=== PATIENT | male | born 1965 | race Caucasian/White ===

== ENCOUNTER 2016-02-24 15:20 | Inpatient (IN) | payer MEDICARE ==
[~2016-02-24] VITALS: Ht 188 cm; Wt 107.6 kg
[~2016-02-24 15:20] MED LIST: ACETAMINOPHEN 1,000 MG/100 ML IV ONE; BUPIVACA/EPI 0.25% PF 30ML NERVEBLOCK ONE; LIDOCAINE 2% SYR 5 ML IV ONE; PROPOFOL 50ML PER ML IV ONE; SUCCINYLCHOLINE 20 MG/ML VL IV ONE
[2016-02-24] MEDS ORDERED: ONDANSETRON 4 MG VIAL ONE ×2 (19:23→22:31)
[2016-02-24] MEDS ORDERED: DILAUDID 1 MG/ML AMP ONE ×2 (19:23→22:31)
[2016-02-24] MEDS ORDERED: VANCOMYCIN 2,000 MG in SODIUM CHLORIDE 0.9% 500 ML IV ONE (22:20)
[2016-02-24] MEDS ORDERED: BISACODYL EC 5 MG TAB PO PRN (22:55)
[2016-02-24] MEDS ORDERED: GLUCAGON 1 MG VIAL IM PRN (22:55)
[2016-02-24] MEDS ORDERED: ALU/MAG/SIM 30 ML UDC PO PRN (22:55)
[2016-02-24] MEDS ORDERED: ACETAMINOPHEN 325 MG TAB PO PRN (22:55)
[2016-02-24] MEDS ORDERED: DEXTROSE 50% SYRINGE 50 ML IV PRN (22:55)
[2016-02-24] MEDS ORDERED: BISACODYL 10 MG SUPP RECTAL PRN (22:55)
[2016-02-24] MEDS ORDERED: PHARMACY TO DOSE ZOSYN IV SCH (23:00)
[2016-02-24] MEDS ORDERED: PHARMACY TO DOSE VANCOMYCIN IV SCH (23:00)
[2016-02-25] VITALS (7 sets, daily range): BP systolic 110–122; RESP 16–20; TEMP 95.8–97.7; Ht 188 cm; Wt 107.6 kg
[2016-02-25] MEDS ORDERED: NITROGLYCERIN SL 0.4 MG TAB SL PRN (02:50)
[2016-02-25] MEDS ORDERED: DILAUDID 1 MG/ML AMP IV PRN ×2 (02:50→04:20)
[2016-02-25] MEDS ORDERED: NITROGLYCERIN SL 0.4 MG TAB SL ONE (03:00)
[2016-02-25] MEDS ORDERED: ASPIRIN 81 MG CHEW TAB PO ONE (03:15)
[2016-02-25] MEDS: DILAUDID 1 MG/ML AMP IV PRN ×7 (04:44→23:27)
[2016-02-25] MEDS: PIPERACIL/TAZO 2.25GM/50ML 50 ML IV SCH ×3 (04:45→23:26)
[2016-02-25] MEDS: SODIUM CHLORIDE 0.9% FLUSH BAG 500 ML IV SCH (04:52)
[2016-02-25] MEDS: ONDANSETRON 4 MG VIAL IV PUSH PRN ×3 (05:46→14:05)
[2016-02-25] MEDS: FAMOTIDINE 20 MG INJ IV SCH ×2 (08:01→20:21)
[2016-02-25] MEDS: SALINE FLUSH 10 ML FLUSH SCH ×2 (08:01→19:46)
[2016-02-25] MEDS ORDERED: ENOXAPARIN 30 MG/0.3 ML SYR SUBQ SCH (09:00)
[2016-02-25] MEDS ORDERED: CYCLOBENZAPRINE 10 MG TAB PO PRN (11:05)
[2016-02-25] MEDS: Furosemide 40 MG TAB PO SCH ×2 (11:05→16:42)
[2016-02-25] MEDS: LEVEMIR INSULIN SUBQ SCH ×2 (11:09→17:00)
[2016-02-25] MEDS ORDERED: PANTOPRAZOLE 40 MG TAB PO SCH (11:12)
[2016-02-25] MEDS: METOCLOPRAMIDE 5 MG TAB PO SCH ×2 (12:34→16:53)
[2016-02-25] MEDS: LANTHANUM 500 MG PO SCH ×3 (12:35→19:01)
[2016-02-25] MEDS: Carvedilol 6.25 MG TAB PO SCH ×2 (12:36→20:21)
[2016-02-25] MEDS: RANOLAZINE ER 500 MG TAB PO SCH ×2 (12:36→20:20)
[2016-02-25] MEDS: TAMSULOSIN 0.4 MG CAP PO SCH ×2 (12:36→20:20)
[2016-02-25] MEDS: DICYCLOMINE 20 MG TAB PO SCH ×3 (12:36→23:26)
[2016-02-25] MEDS: SERTRALINE 50 MG TAB PO SCH (12:37)
[2016-02-25] MEDS: amLODIPine 10 MG TAB PO SCH (12:37)
[2016-02-25] MEDS: THIAMINE 100 MG TAB PO SCH ×2 (12:41→20:21)
[2016-02-25] MEDS ORDERED: SODIUM CHLORIDE 0.9% 1,000 ML IV PRN (13:20)
[2016-02-25] MEDS ORDERED: ALBUMIN HUMAN 25GM (25%) 100 ML IV PRN (13:20)
[2016-02-25] MEDS ORDERED: SODIUM CHLORIDE 0.9% 1,000 ML IV SCH (13:20)
[2016-02-25] MEDS: DUONEB INH SCH ×4 (15:53→23:39)
[2016-02-25] MEDS: ONDANSETRON 4 MG VIAL IV PRN (19:46)
[2016-02-25] MEDS: ROSUVASTATIN 5 MG TAB PO SCH (20:20)
[2016-02-26 00:27] VITALS: TEMP 96.3
[2016-02-26 00:44] VITALS: TEMP 97.3
[2016-02-26] MEDS: ONDANSETRON 4 MG VIAL IV PRN ×3 (03:05→15:34)
[2016-02-26] MEDS: DILAUDID 1 MG/ML AMP IV PRN ×9 (03:06→22:53)
[2016-02-26 03:10] VITALS: BP_SYST 119; RESP 16; TEMP 97.3
[2016-02-26] MEDS: DICYCLOMINE 20 MG TAB PO SCH ×5 (05:17→22:52)
[2016-02-26] MEDS ORDERED: MISSING DOSE XX ONE ×4 (05:20→22:10)
[2016-02-26] MEDS: SODIUM CHLORIDE 0.9% FLUSH BAG 500 ML IV SCH (06:51)
[2016-02-26 07:23] VITALS: BP_SYST 124; RESP 18
[2016-02-26] MEDS: METOCLOPRAMIDE 5 MG TAB PO SCH ×2 (07:40→18:38)
[2016-02-26] MEDS: DUONEB INH SCH ×4 (07:47→22:58)
[2016-02-26] MEDS: LEVEMIR INSULIN SUBQ SCH ×2 (08:00→17:00)
[2016-02-26] MEDS: Carvedilol 6.25 MG TAB PO SCH ×2 (09:00→21:09)
[2016-02-26] MEDS: amLODIPine 10 MG TAB PO SCH (09:00)
[2016-02-26] MEDS: SALINE FLUSH 10 ML FLUSH SCH ×2 (09:40→20:13)
[2016-02-26] MEDS: SERTRALINE 50 MG TAB PO SCH (09:45)
[2016-02-26] MEDS: LANTHANUM 500 MG PO SCH ×3 (09:45→18:02)
[2016-02-26] MEDS: FAMOTIDINE 20 MG INJ IV SCH ×2 (09:45→21:09)
[2016-02-26] MEDS: RANOLAZINE ER 500 MG TAB PO SCH ×2 (09:46→21:09)
[2016-02-26] MEDS: THIAMINE 100 MG TAB PO SCH ×2 (09:46→21:10)
[2016-02-26] MEDS: TAMSULOSIN 0.4 MG CAP PO SCH ×2 (09:46→21:09)
[2016-02-26] MEDS: Furosemide 40 MG TAB PO SCH ×2 (09:46→18:01)
[2016-02-26 11:26] VITALS: BP_SYST 122; RESP 16; TEMP 97.6
[2016-02-26] MEDS: PIPERACIL/TAZO 2.25GM/50ML 50 ML IV SCH (12:11)
[2016-02-26] MEDS: SACCHA BOULARDII 250MG CAP PO SCH ×3 (12:45→21:09)
[2016-02-26] MEDS ORDERED: EPOETIN 10,000 UNIT VIAL IV SCH ×2 (16:55→17:05)
[2016-02-26] MEDS ORDERED: EPOETIN 2000 UNIT IV SCH (17:00)
[2016-02-26] MEDS ORDERED: EPOETIN IV SCH (17:00)
[2016-02-26 19:17] VITALS: BP_SYST 138; RESP 18; TEMP 97.7
[2016-02-26] MEDS ORDERED: VANCOMYCIN 1,000 MG in SODIUM CHLORIDE 0.9% 250 ML IV ONE (21:00)
[2016-02-26] MEDS: ROSUVASTATIN 5 MG TAB PO SCH (21:09)
[2016-02-26] MEDS: PANTOPRAZOLE 40 MG TAB PO SCH (21:10)
[2016-02-26] MEDS: ONDANSETRON 4 MG VIAL IV PUSH PRN (22:52)
[2016-02-27] VITALS (13 sets, daily range): BP systolic 85–179; RESP 16–18; TEMP 95–98.1
[2016-02-27] MEDS: PIPERACIL/TAZO 2.25GM/50ML 50 ML IV SCH ×3 (00:03→23:11)
[2016-02-27] MEDS: DILAUDID 1 MG/ML AMP IV PRN ×8 (01:07→23:51)
[2016-02-27] MEDS: DICYCLOMINE 20 MG TAB PO SCH ×4 (04:07→23:11)
[2016-02-27] MEDS: ONDANSETRON 4 MG VIAL IV PUSH PRN ×2 (04:23→09:10)
[2016-02-27] MEDS: SODIUM CHLORIDE 0.9% FLUSH BAG 500 ML IV SCH (05:43)
[2016-02-27] MEDS: METOCLOPRAMIDE 5 MG TAB PO SCH ×2 (06:15→18:01)
[2016-02-27] MEDS: DUONEB INH SCH ×4 (07:06→22:38)
[2016-02-27] MEDS ORDERED: MISSING DOSE XX ONE ×5 (08:40→21:25)
[2016-02-27] MEDS: amLODIPine 10 MG TAB PO SCH (08:43)
[2016-02-27] MEDS: Carvedilol 6.25 MG TAB PO SCH ×2 (08:43→21:44)
[2016-02-27] MEDS: LEVEMIR INSULIN SUBQ SCH ×2 (09:03→16:50)
[2016-02-27] MEDS: FAMOTIDINE 20 MG INJ IV SCH ×2 (09:08→21:29)
[2016-02-27] MEDS: Furosemide 40 MG TAB PO SCH ×2 (09:09→16:50)
[2016-02-27] MEDS: TAMSULOSIN 0.4 MG CAP PO SCH ×2 (09:09→21:14)
[2016-02-27] MEDS: RANOLAZINE ER 500 MG TAB PO SCH ×2 (09:09→21:13)
[2016-02-27] MEDS: SACCHA BOULARDII 250MG CAP PO SCH ×3 (09:09→21:14)
[2016-02-27] MEDS: SERTRALINE 50 MG TAB PO SCH (09:09)
[2016-02-27] MEDS: LANTHANUM 500 MG PO SCH ×3 (09:10→18:01)
[2016-02-27] MEDS ORDERED: GLYCOPYRROLATE 0.2 MG/ML VIAL IV ONE ×2 (09:10)
[2016-02-27] MEDS ORDERED: MIDAZOLAM 2 MG/2 ML INJ IV ONE ×2 (09:10)
[2016-02-27] MEDS ORDERED: LIDOCAINE 1% BUFFERED 1 ML SYR INTRADERM PRN ×2 (09:10)
[2016-02-27] MEDS ORDERED: LACT RINGERS 1,000 ML IV SCH ×2 (09:10)
[2016-02-27] MEDS ORDERED: NEB-XOPENEX 0.63 MG/3 ML INH ONE (09:10)
[2016-02-27] MEDS: THIAMINE 100 MG TAB PO SCH ×2 (09:10→21:13)
[2016-02-27] MEDS: SALINE FLUSH 10 ML FLUSH SCH ×2 (09:11→21:29)
[2016-02-27] MEDS: ONDANSETRON 4 MG VIAL IV PRN (18:10)
[2016-02-27] MEDS ORDERED: VANCOMYCIN 750 MG in SODIUM CHLORIDE 0.9% 250 ML IV ONE (21:00)
[2016-02-27] MEDS: ROSUVASTATIN 5 MG TAB PO SCH (21:13)
[2016-02-27] MEDS: Senna/DSS 50/8.6 MG TAB PO SCH (21:13)
[2016-02-27] MEDS: PANTOPRAZOLE 40 MG TAB PO SCH (21:28)
[2016-02-28] VITALS (22 sets, daily range): BP systolic 96–188; RESP 14–16; TEMP 97.2–98.4
[2016-02-28] MEDS: DILAUDID 1 MG/ML AMP IV PRN ×9 (04:06→22:26)
[2016-02-28] MEDS: ONDANSETRON 4 MG VIAL IV PRN ×3 (04:06→17:48)
[2016-02-28] MEDS: DICYCLOMINE 20 MG TAB PO SCH ×4 (04:07→22:37)
[2016-02-28] MEDS: SODIUM CHLORIDE 0.9% FLUSH BAG 500 ML IV SCH (05:34)
[2016-02-28] MEDS: METOCLOPRAMIDE 5 MG TAB PO SCH ×2 (06:03→17:12)
[2016-02-28] MEDS: DUONEB INH SCH ×4 (07:00→23:00)
[2016-02-28] MEDS: SALINE FLUSH 10 ML FLUSH SCH ×2 (08:00→19:53)
[2016-02-28] MEDS: LEVEMIR INSULIN SUBQ SCH ×2 (08:00→17:00)
[2016-02-28] MEDS: BISACODYL EC 5 MG TAB PO SCH (09:00)
[2016-02-28] MEDS: SACCHA BOULARDII 250MG CAP PO SCH ×3 (09:00→20:24)
[2016-02-28] MEDS: RANOLAZINE ER 500 MG TAB PO SCH ×2 (09:00→20:24)
[2016-02-28] MEDS: LANTHANUM 500 MG PO SCH ×3 (09:00→17:12)
[2016-02-28] MEDS: TAMSULOSIN 0.4 MG CAP PO SCH ×3 (09:00→20:24)
[2016-02-28] MEDS: Senna/DSS 50/8.6 MG TAB PO SCH ×2 (09:00→20:24)
[2016-02-28] MEDS: Furosemide 40 MG TAB PO SCH ×2 (09:00→17:12)
[2016-02-28] MEDS: THIAMINE 100 MG TAB PO SCH ×2 (09:00→20:24)
[2016-02-28] MEDS ORDERED: VENOFER 100 MG/5 ML VL IV SCH (09:50)
[2016-02-28] MEDS: Carvedilol 6.25 MG TAB PO SCH ×2 (09:54→20:24)
[2016-02-28] MEDS: FAMOTIDINE 20 MG INJ IV SCH ×2 (10:19→20:25)
[2016-02-28] MEDS: PIPERACIL/TAZO 2.25GM/50ML 50 ML IV SCH (12:07)
[2016-02-28] MEDS ORDERED: MIDAZOLAM 2 MG/2 ML INJ ONE (13:37)
[2016-02-28] MEDS ORDERED: ONDANSETRON 4 MG VIAL IV PRN (14:35)
[2016-02-28] MEDS ORDERED: MEPERIDINE 25 MG/ML IV PRN (14:35)
[2016-02-28] MEDS ORDERED: OXYCODONE 5 MG TAB PO PRN (14:35)
[2016-02-28] MEDS ORDERED: MORPHINE 2 MG/ML SYR IV PRN (14:35)
[2016-02-28] MEDS ORDERED: MORPHINE 4 MG/ML SYR IV PRN (14:35)
[2016-02-28] MEDS: SERTRALINE 50 MG TAB PO SCH (17:11)
[2016-02-28] MEDS: amLODIPine 10 MG TAB PO SCH (17:14)
[2016-02-28] MEDS: ROSUVASTATIN 5 MG TAB PO SCH (20:24)
[2016-02-28] MEDS: PANTOPRAZOLE 40 MG TAB PO SCH (20:24)
[2016-02-28] MEDS: SALINE FLUSH 10 ML FLUSH PRN (20:25)
[2016-02-28] MEDS: oxyCODONE/APAP 10/325 TABLET PO PRN (20:59)
[2016-02-28] MEDS ORDERED: TAMSULOSIN 0.4 MG CAP PO SCH (21:00)
[2016-02-28] MEDS: LANTHANUM 500 MG PO PRN (22:37)
[2016-02-29] VITALS (7 sets, daily range): BP systolic 132–180; RESP 16–20; TEMP 97.2–98.9
[2016-02-29] MEDS: PIPERACIL/TAZO 2.25GM/50ML 50 ML IV SCH ×2 (01:23→14:51)
[2016-02-29] MEDS: DILAUDID 1 MG/ML AMP IV PRN ×7 (01:23→22:40)
[2016-02-29] MEDS: SALINE FLUSH 10 ML FLUSH PRN ×2 (01:24→04:01)
[2016-02-29] MEDS: ONDANSETRON 4 MG VIAL IV PRN ×4 (01:50→22:32)
[2016-02-29] MEDS: DICYCLOMINE 20 MG TAB PO SCH ×4 (03:59→22:31)
[2016-02-29] MEDS ORDERED: FENTANYL 100 MCG/2 ML AMP IV ONE (06:05)
[2016-02-29] MEDS ORDERED: ONDANSETRON 4 MG VIAL IV PUSH ONE (06:10)
[2016-02-29] MEDS: METOCLOPRAMIDE 5 MG TAB PO SCH ×2 (06:19→16:00)
[2016-02-29] MEDS: SODIUM CHLORIDE 0.9% FLUSH BAG 500 ML IV SCH (06:20)
[2016-02-29] MEDS: DUONEB INH SCH ×3 (06:39→23:14)
[2016-02-29] MEDS: LEVEMIR INSULIN SUBQ SCH ×2 (08:00→17:00)
[2016-02-29] MEDS: FAMOTIDINE 20 MG INJ IV SCH ×2 (08:00→20:08)
[2016-02-29] MEDS: SALINE FLUSH 10 ML FLUSH SCH ×2 (08:54→20:07)
[2016-02-29] MEDS: THIAMINE 100 MG TAB PO SCH ×2 (09:00→20:08)
[2016-02-29] MEDS: Furosemide 40 MG TAB PO SCH ×2 (09:00→17:00)
[2016-02-29] MEDS: TAMSULOSIN 0.4 MG CAP PO SCH ×3 (09:00→20:22)
[2016-02-29] MEDS: SACCHA BOULARDII 250MG CAP PO SCH ×3 (09:00→20:08)
[2016-02-29] MEDS: LANTHANUM 500 MG PO SCH ×3 (09:00→18:00)
[2016-02-29] MEDS: RANOLAZINE ER 500 MG TAB PO SCH ×2 (09:00→20:08)
[2016-02-29] MEDS: Senna/DSS 50/8.6 MG TAB PO SCH ×2 (09:00→20:08)
[2016-02-29] MEDS: Carvedilol 6.25 MG TAB PO SCH ×2 (09:00→20:08)
[2016-02-29] MEDS: BISACODYL EC 5 MG TAB PO SCH (14:51)
[2016-02-29] MEDS: SERTRALINE 50 MG TAB PO SCH (14:51)
[2016-02-29] MEDS: amLODIPine 10 MG TAB PO SCH (14:51)
[2016-02-29] MEDS: LANTHANUM 500 MG PO PRN (14:58)
[2016-02-29] MEDS: PANTOPRAZOLE 40 MG TAB PO SCH (20:08)
[2016-02-29] MEDS: ROSUVASTATIN 5 MG TAB PO SCH (20:08)
[2016-02-29] MEDS: MAG HYDROX 30 ML UDC PO PRN (20:18)
[2016-02-29] MEDS ORDERED: VANCOMYCIN 500 MG in SODIUM CHLORIDE 0.9% 100 ML IV ONE (21:40)
[2016-03-01] VITALS (7 sets, daily range): BP systolic 106–171; RESP 16–20; TEMP 97.8–99.9
[2016-03-01] MEDS: PIPERACIL/TAZO 2.25GM/50ML 50 ML IV SCH ×3 (00:56→23:23)
[2016-03-01] MEDS: DILAUDID 1 MG/ML AMP IV PRN ×5 (01:02→20:20)
[2016-03-01] MEDS: ONDANSETRON 4 MG VIAL IV PRN (04:52)
[2016-03-01] MEDS: DICYCLOMINE 20 MG TAB PO SCH ×4 (04:53→23:22)
[2016-03-01] MEDS: oxyCODONE/APAP 10/325 TABLET PO PRN (05:38)
[2016-03-01] MEDS: SODIUM CHLORIDE 0.9% FLUSH BAG 500 ML IV SCH (05:38)
[2016-03-01] MEDS: METOCLOPRAMIDE 5 MG TAB PO SCH ×2 (06:42→17:00)
[2016-03-01] MEDS: DUONEB INH SCH ×4 (07:24→23:14)
[2016-03-01] MEDS: LEVEMIR INSULIN SUBQ SCH ×2 (08:00→17:00)
[2016-03-01] MEDS ORDERED: MISSING DOSE XX ONE ×4 (08:45→13:45)
[2016-03-01] MEDS: Carvedilol 6.25 MG TAB PO SCH ×2 (09:16→20:11)
[2016-03-01] MEDS: Senna/DSS 50/8.6 MG TAB PO SCH ×2 (09:16→20:11)
[2016-03-01] MEDS: SACCHA BOULARDII 250MG CAP PO SCH ×3 (09:17→20:19)
[2016-03-01] MEDS: Furosemide 40 MG TAB PO SCH ×2 (09:17→17:01)
[2016-03-01] MEDS: RANOLAZINE ER 500 MG TAB PO SCH ×2 (09:18→20:11)
[2016-03-01] MEDS: LANTHANUM 500 MG PO SCH ×3 (09:18→18:02)
[2016-03-01] MEDS: THIAMINE 100 MG TAB PO SCH ×2 (09:19→20:11)
[2016-03-01] MEDS: BISACODYL EC 5 MG TAB PO SCH (09:20)
[2016-03-01] MEDS: SERTRALINE 50 MG TAB PO SCH (09:20)
[2016-03-01] MEDS: amLODIPine 10 MG TAB PO SCH (09:20)
[2016-03-01] MEDS: SALINE FLUSH 10 ML FLUSH SCH ×2 (09:22→20:12)
[2016-03-01] MEDS: FAMOTIDINE 20 MG INJ IV SCH ×2 (09:22→20:10)
[2016-03-01] MEDS: PROMETHAZINE 25 MG/ML VIAL IV PRN ×2 (11:10→20:20)
[2016-03-01] MEDS: KETOROLAC 30 MG/ML VIAL IV SCH ×3 (11:54→23:23)
[2016-03-01] MEDS ORDERED: SODIUM CHLORIDE 0.9% 1,000 ML IV SCH (13:10)
[2016-03-01] MEDS ORDERED: hePARIN 1,000 UNITS/ML (PORCINE) 10 ML IV PRN (13:10)
[2016-03-01] MEDS: ROSUVASTATIN 5 MG TAB PO SCH (20:11)
[2016-03-01] MEDS: PANTOPRAZOLE 40 MG TAB PO SCH (20:11)
[2016-03-01] MEDS: TAMSULOSIN 0.4 MG CAP PO SCH (20:11)
[2016-03-02] VITALS (8 sets, daily range): BP systolic 105–166; RESP 16–18; TEMP 97.3–98.1
[2016-03-02] MEDS: DILAUDID 1 MG/ML AMP IV PRN ×5 (00:47→23:43)
[2016-03-02] MEDS: DICYCLOMINE 20 MG TAB PO SCH ×4 (05:43→23:00)
[2016-03-02] MEDS: METOCLOPRAMIDE 5 MG TAB PO SCH ×2 (05:43→17:30)
[2016-03-02] MEDS: KETOROLAC 30 MG/ML VIAL IV SCH ×4 (05:43→23:42)
[2016-03-02] MEDS: SODIUM CHLORIDE 0.9% FLUSH BAG 500 ML IV SCH (05:44)
[2016-03-02] MEDS: SALINE FLUSH 10 ML FLUSH SCH ×2 (08:00→20:46)
[2016-03-02] MEDS: FAMOTIDINE 20 MG INJ IV SCH ×2 (08:00→20:46)
[2016-03-02] MEDS: LEVEMIR INSULIN SUBQ SCH ×2 (08:00→16:38)
[2016-03-02] MEDS: DUONEB INH SCH ×4 (08:08→23:24)
[2016-03-02] MEDS: RANOLAZINE ER 500 MG TAB PO SCH ×2 (09:00→20:47)
[2016-03-02] MEDS: Carvedilol 6.25 MG TAB PO SCH ×2 (09:00→20:51)
[2016-03-02] MEDS: LANTHANUM 500 MG PO SCH ×3 (09:00→17:38)
[2016-03-02] MEDS: Furosemide 40 MG TAB PO SCH ×2 (09:00→17:30)
[2016-03-02] MEDS: THIAMINE 100 MG TAB PO SCH ×2 (09:00→20:47)
[2016-03-02] MEDS: Senna/DSS 50/8.6 MG TAB PO SCH ×2 (09:00→20:47)
[2016-03-02] MEDS: SACCHA BOULARDII 250MG CAP PO SCH ×3 (09:00→20:47)
[2016-03-02] MEDS: amLODIPine 10 MG TAB PO SCH (14:04)
[2016-03-02] MEDS ORDERED: MISSING DOSE XX ONE ×2 (14:05→21:05)
[2016-03-02] MEDS: BISACODYL EC 5 MG TAB PO SCH (14:05)
[2016-03-02] MEDS: SERTRALINE 50 MG TAB PO SCH (14:10)
[2016-03-02] MEDS: PIPERACIL/TAZO 2.25GM/50ML 50 ML IV SCH ×2 (14:24→23:45)
[2016-03-02] MEDS: ONDANSETRON 4 MG VIAL IV PRN ×2 (14:49→23:42)
[2016-03-02] MEDS: PROMETHAZINE 25 MG/ML VIAL IV PRN ×2 (15:01→20:46)
[2016-03-02] MEDS ORDERED: VANCOMYCIN 500 MG in SODIUM CHLORIDE 0.9% 100 ML IV ONE (18:00)
[2016-03-02] MEDS: ROSUVASTATIN 5 MG TAB PO SCH (20:47)
[2016-03-02] MEDS: PANTOPRAZOLE 40 MG TAB PO SCH (20:47)
[2016-03-02] MEDS: TAMSULOSIN 0.4 MG CAP PO SCH (20:47)
[2016-03-02] MEDS: MAG HYDROX 30 ML UDC PO PRN (21:08)
[2016-03-03] MEDS: DILAUDID 1 MG/ML AMP IV PRN ×7 (02:49→23:25)
[2016-03-03] MEDS: PROMETHAZINE 25 MG/ML VIAL IV PRN ×3 (02:49→19:47)
[2016-03-03 03:47] VITALS: BP_SYST 134; RESP 16; TEMP 97.6
[2016-03-03] MEDS: KETOROLAC 30 MG/ML VIAL IV SCH ×4 (04:16→23:28)
[2016-03-03] MEDS: DICYCLOMINE 20 MG TAB PO SCH ×4 (05:00→23:28)
[2016-03-03] MEDS: METOCLOPRAMIDE 5 MG TAB PO SCH (06:13)
[2016-03-03] MEDS: ONDANSETRON 4 MG VIAL IV PRN ×2 (06:14→13:49)
[2016-03-03] MEDS: SODIUM CHLORIDE 0.9% FLUSH BAG 500 ML IV SCH (06:15)
[2016-03-03] MEDS: DUONEB INH SCH ×4 (06:24→22:17)
[2016-03-03 07:21] VITALS: BP_SYST 122; RESP 18; TEMP 97.3
[2016-03-03] MEDS: SALINE FLUSH 10 ML FLUSH SCH ×2 (07:49→19:47)
[2016-03-03] MEDS: FAMOTIDINE 20 MG INJ IV SCH ×2 (07:49→19:47)
[2016-03-03] MEDS: RANOLAZINE ER 500 MG TAB PO SCH ×2 (09:01→21:11)
[2016-03-03] MEDS: LEVEMIR INSULIN SUBQ SCH ×2 (09:01→16:59)
[2016-03-03] MEDS: BISACODYL EC 5 MG TAB PO SCH (09:02)
[2016-03-03] MEDS: THIAMINE 100 MG TAB PO SCH ×2 (09:02→21:11)
[2016-03-03] MEDS: SACCHA BOULARDII 250MG CAP PO SCH ×3 (09:02→21:11)
[2016-03-03] MEDS: Furosemide 40 MG TAB PO SCH ×2 (09:03→16:58)
[2016-03-03] MEDS: Carvedilol 6.25 MG TAB PO SCH ×2 (09:03→21:11)
[2016-03-03] MEDS: SERTRALINE 50 MG TAB PO SCH (09:04)
[2016-03-03] MEDS: Senna/DSS 50/8.6 MG TAB PO SCH ×2 (09:04→21:11)
[2016-03-03] MEDS: LANTHANUM 500 MG PO SCH ×3 (09:04→17:01)
[2016-03-03] MEDS: amLODIPine 10 MG TAB PO SCH (09:04)
[2016-03-03 11:15] VITALS: BP_SYST 120; RESP 16; TEMP 97.4
[2016-03-03 15:39] VITALS: BP_SYST 128; RESP 16; TEMP 97.8
[2016-03-03] MEDS: PROCHLORPERAZINE 10 MG/2 ML VIAL IV PRN ×2 (17:15→23:27)
[2016-03-03 19:34] VITALS: BP_SYST 135; RESP 16; TEMP 97.6
[2016-03-03] MEDS ORDERED: MISSING DOSE XX ONE (20:40)
[2016-03-03] MEDS: TAMSULOSIN 0.4 MG CAP PO SCH (21:10)
[2016-03-03] MEDS: ROSUVASTATIN 5 MG TAB PO SCH (21:11)
[2016-03-03] MEDS: PANTOPRAZOLE 40 MG TAB PO SCH (21:11)
[2016-03-03 23:17] VITALS: BP_SYST 147; RESP 16; TEMP 97.5
[2016-03-04 02:25] VITALS: BP_SYST 119; RESP 16; TEMP 97.4
[2016-03-04] MEDS: DILAUDID 1 MG/ML AMP IV PRN ×6 (02:27→23:43)
[2016-03-04] MEDS: PROMETHAZINE 25 MG/ML VIAL IV PRN ×3 (02:31→21:28)
[2016-03-04] MEDS: SODIUM CHLORIDE 0.9% FLUSH BAG 500 ML IV SCH (05:27)
[2016-03-04] MEDS: DICYCLOMINE 20 MG TAB PO SCH ×4 (05:30→23:44)
[2016-03-04] MEDS: PROCHLORPERAZINE 10 MG/2 ML VIAL IV PRN ×3 (05:31→23:44)
[2016-03-04] MEDS: KETOROLAC 30 MG/ML VIAL IV SCH ×4 (05:31→23:42)
[2016-03-04] MEDS: DUONEB INH SCH ×4 (07:00→22:36)
[2016-03-04] MEDS: LEVEMIR INSULIN SUBQ SCH (08:00)
[2016-03-04 08:01] VITALS: BP_SYST 133; RESP 16
[2016-03-04] MEDS ORDERED: MISSING DOSE XX ONE ×3 (08:25→22:05)
[2016-03-04] MEDS: SALINE FLUSH 10 ML FLUSH SCH ×2 (08:36→21:50)
[2016-03-04] MEDS: FAMOTIDINE 20 MG INJ IV SCH ×2 (08:36→21:28)
[2016-03-04] MEDS: Carvedilol 6.25 MG TAB PO SCH ×2 (09:27→21:30)
[2016-03-04] MEDS: ONDANSETRON 4 MG VIAL IV PRN (09:27)
[2016-03-04] MEDS: BISACODYL EC 5 MG TAB PO SCH (09:28)
[2016-03-04] MEDS: Senna/DSS 50/8.6 MG TAB PO SCH ×2 (09:28→21:33)
[2016-03-04] MEDS: SACCHA BOULARDII 250MG CAP PO SCH ×3 (09:28→21:29)
[2016-03-04] MEDS: LANTHANUM 500 MG PO SCH ×3 (09:28→16:55)
[2016-03-04] MEDS: THIAMINE 100 MG TAB PO SCH ×2 (09:29→21:29)
[2016-03-04] MEDS: SERTRALINE 50 MG TAB PO SCH (10:21)
[2016-03-04] MEDS: Furosemide 40 MG TAB PO SCH ×2 (10:21→16:55)
[2016-03-04] MEDS: RANOLAZINE ER 500 MG TAB PO SCH ×2 (10:22→21:29)
[2016-03-04] MEDS: amLODIPine 10 MG TAB PO SCH (10:22)
[2016-03-04 10:55] VITALS: BP_SYST 116; RESP 16; TEMP 97.3
[2016-03-04] MEDS: PIPERACIL/TAZO 2.25GM/50ML 50 ML IV SCH ×2 (12:07→23:41)
[2016-03-04] MEDS ORDERED: LEVOFLOXACIN 500 MG TAB PO SCH (12:30)
[2016-03-04 19:31] VITALS: BP_SYST 118; RESP 16; TEMP 97.9
[2016-03-04] MEDS: TAMSULOSIN 0.4 MG CAP PO SCH (21:31)
[2016-03-04] MEDS: PANTOPRAZOLE 40 MG TAB PO SCH (21:32)
[2016-03-04] MEDS: ROSUVASTATIN 5 MG TAB PO SCH (21:32)
[2016-03-04 22:51] VITALS: BP_SYST 130; RESP 18; TEMP 97.4
[2016-03-05] VITALS (8 sets, daily range): BP systolic 99–132; RESP 16–18; TEMP 97–98.7
[2016-03-05] MEDS: PROMETHAZINE 25 MG/ML VIAL IV PRN ×2 (03:51→20:21)
[2016-03-05] MEDS: DILAUDID 1 MG/ML AMP IV PRN ×6 (03:52→23:00)
[2016-03-05] MEDS ORDERED: MISSING DOSE XX ONE (04:10)
[2016-03-05] MEDS: KETOROLAC 30 MG/ML VIAL IV SCH ×4 (05:46→23:00)
[2016-03-05] MEDS: DICYCLOMINE 20 MG TAB PO SCH ×4 (05:46→23:01)
[2016-03-05] MEDS: PROCHLORPERAZINE 10 MG/2 ML VIAL IV PRN ×3 (05:46→23:01)
[2016-03-05] MEDS: SODIUM CHLORIDE 0.9% FLUSH BAG 500 ML IV SCH ×2 (05:47→21:52)
[2016-03-05] MEDS: DUONEB INH SCH ×5 (07:00→23:03)
[2016-03-05] MEDS: SALINE FLUSH 10 ML FLUSH SCH ×2 (08:00→20:00)
[2016-03-05] MEDS: Furosemide 40 MG TAB PO SCH ×2 (09:00→16:59)
[2016-03-05] MEDS: amLODIPine 10 MG TAB PO SCH (09:00)
[2016-03-05] MEDS: LANTHANUM 500 MG PO SCH ×3 (09:00→17:00)
[2016-03-05] MEDS ORDERED: LEVOFLOXACIN 500 MG TAB PO SCH (09:00)
[2016-03-05] MEDS: FAMOTIDINE 20 MG INJ IV SCH ×2 (12:14→20:21)
[2016-03-05] MEDS: PIPERACIL/TAZO 2.25GM/50ML 50 ML IV SCH (12:15)
[2016-03-05] MEDS: SACCHA BOULARDII 250MG CAP PO SCH ×3 (12:16→20:35)
[2016-03-05] MEDS: Carvedilol 6.25 MG TAB PO SCH ×2 (12:16→20:35)
[2016-03-05] MEDS: SERTRALINE 50 MG TAB PO SCH (12:17)
[2016-03-05] MEDS: Senna/DSS 50/8.6 MG TAB PO SCH ×2 (12:17→20:36)
[2016-03-05] MEDS: BISACODYL EC 5 MG TAB PO SCH (12:17)
[2016-03-05] MEDS: THIAMINE 100 MG TAB PO SCH ×2 (12:18→20:35)
[2016-03-05] MEDS: RANOLAZINE ER 500 MG TAB PO SCH ×2 (12:18→20:36)
[2016-03-05] MEDS ORDERED: VANCOMYCIN 500 MG in SODIUM CHLORIDE 0.9% 100 ML IV ONE (13:00)
[2016-03-05] MEDS: ONDANSETRON 4 MG VIAL IV PRN (17:04)
[2016-03-05] MEDS ORDERED: PHARMACY TO DOSE XX SCH (17:35)
[2016-03-05] MEDS ORDERED: PHARMACY TO DOSE LEVAQUIN IV SCH (18:00)
[2016-03-05] MEDS: TAMSULOSIN 0.4 MG CAP PO SCH (20:35)
[2016-03-05] MEDS: PANTOPRAZOLE 40 MG TAB PO SCH (20:35)
[2016-03-05] MEDS: ROSUVASTATIN 5 MG TAB PO SCH (20:36)
[2016-03-06] MEDS: PROMETHAZINE 25 MG/ML VIAL IV PRN (02:30)
[2016-03-06] MEDS: DILAUDID 1 MG/ML AMP IV PRN ×3 (02:30→09:21)
[2016-03-06 03:44] VITALS: BP_SYST 96; RESP 16; TEMP 98.6
[2016-03-06] MEDS: DICYCLOMINE 20 MG TAB PO SCH ×2 (05:25→11:10)
[2016-03-06] MEDS: KETOROLAC 30 MG/ML VIAL IV SCH (05:25)
[2016-03-06 07:08] VITALS: BP_SYST 104; RESP 16; TEMP 98.1
[2016-03-06] MEDS: DUONEB INH SCH ×2 (07:51→14:40)
[2016-03-06] MEDS ORDERED: LEVOFLOXACIN 250 MG TAB PO SCH (09:00)
[2016-03-06] MEDS ORDERED: MISSING DOSE XX ONE ×3 (09:20→11:35)
[2016-03-06] MEDS: FAMOTIDINE 20 MG INJ IV SCH (09:21)
[2016-03-06] MEDS: SALINE FLUSH 10 ML FLUSH SCH (09:21)
[2016-03-06] MEDS: THIAMINE 100 MG TAB PO SCH (09:22)
[2016-03-06] MEDS: SERTRALINE 50 MG TAB PO SCH (09:23)
[2016-03-06] MEDS: BISACODYL EC 5 MG TAB PO SCH (09:23)
[2016-03-06] MEDS: RANOLAZINE ER 500 MG TAB PO SCH (09:24)
[2016-03-06] MEDS: Furosemide 40 MG TAB PO SCH (09:24)
[2016-03-06] MEDS: amLODIPine 10 MG TAB PO SCH (09:25)
[2016-03-06] MEDS: Senna/DSS 50/8.6 MG TAB PO SCH (09:25)
[2016-03-06] MEDS: Carvedilol 6.25 MG TAB PO SCH (09:25)
[2016-03-06] MEDS: SACCHA BOULARDII 250MG CAP PO SCH (09:25)
[2016-03-06] MEDS: LANTHANUM 500 MG PO SCH ×2 (09:26→12:43)
[2016-03-06] MEDS ORDERED: PROCHLORPERAZINE 10 MG/2 ML VIAL IV PRN (09:35)
[2016-03-06 10:27] VITALS: BP_SYST 103; RESP 16; TEMP 97.7
[2016-03-06 14:19] VITALS: BP_SYST 103; RESP 16; TEMP 97.7
== END 2016-03-06 17:31 | disposition home or self-care (01) | DRG 579 ==
LOC: ENRESERVDT → ENRESERVTM → ER 15:20 → EMR 22:52 → ENPENDDIS 22:52 → 5THW 02-25 03:40 → UNDODISIN 02-28 16:08
PROVIDERS: ADMIT Hospitalist; ATTEND Hospitalist
PROC: 0J9B0ZZ Drainage of Perineum Subcutaneous Tissue and Fascia, Open Approach (ICD-10-PCS; principal; 2016-02-28 14:07)
DX: L02.215 Cutaneous abscess of perineum (principal); N18.6 End stage renal disease; R18.8 Other ascites; E11.42 Type 2 diabetes mellitus with diabetic polyneuropathy; I12.0 Hypertensive chronic kidney disease with stage 5 chronic kidney disease or end stage renal disease; E87.5 Hyperkalemia; Z99.2 Dependence on renal dialysis; J45.909 Unspecified asthma, uncomplicated; E78.5 Hyperlipidemia, unspecified; E11.9 Type 2 diabetes mellitus without complications; E11.319 Type 2 diabetes mellitus with unspecified diabetic retinopathy without macular edema; K21.9 Gastro-esophageal reflux disease without esophagitis; I25.10 Atherosclerotic heart disease of native coronary artery without angina pectoris; Z83.3 Family history of diabetes mellitus; Z80.42 Family history of malignant neoplasm of prostate; Z82.49 Family history of ischemic heart disease and other diseases of the circulatory system; Z87.891 Personal history of nicotine dependence; Z79.4 Long term (current) use of insulin; Z79.51 Long term (current) use of inhaled steroids; I35.0 Nonrheumatic aortic (valve) stenosis; D64.9 Anemia, unspecified; R07.9 Chest pain, unspecified; B96.4 Proteus (mirabilis) (morganii) as the cause of diseases classified elsewhere; B95.2 Enterococcus as the cause of diseases classified elsewhere; B96.20 Unspecified Escherichia coli [E. coli] as the cause of diseases classified elsewhere; R33.9 Retention of urine, unspecified; W19.XXXA Unspecified fall, initial encounter; Y93.9 Activity, unspecified; Y92.239 Unspecified place in hospital as the place of occurrence of the external cause; R04.0 Epistaxis; K59.00 Constipation, unspecified
CPT/HCPCS: 36415; 74176; 80048; 80053; 80061; 80069; 80202; 81001; 82728; 82947; 83036; 83540; 83690; 83735; 83880; 83970; 84100; 84466; 84484; 85025; 85610; 85730; 87071; 87075; 87077; 87186; 87340; 93005; 93306; 94640; 94799; 96365; 96366; 96375; 96376; 99223; 99232; 99233